=== PATIENT | male | born 1950 | race Caucasian/White ===

== ENCOUNTER 2017-12-23 09:47 | Outpatient (CLI) | payer OTHER ==
[2017-12-23] MEDS ORDERED: IOPAMIDOL-300 100 ML VIAL ONE (10:09)
[2017-12-23] MEDS ORDERED: IOPAMIDOL-300 50 ML VIAL ONE (10:09)
[2017-12-23] MEDS ORDERED: IOPAMIDOL-300 100 ML VIAL IVP ONE (13:53)
[2017-12-23] MEDS ORDERED: IOPAMIDOL-300 50 ML VIAL PO ONE (13:53)
--- NOTE | 2017-12-23 15:01 | CT Report ---
Reason: 2-3 MOINTHS NIGHT SWEATS, CONCERNED W/OCCULT MALIG Procedure Date: 12/23/2017 Accession Number: [id number] / [id number] Procedure: CT - Chest W/ CPT Code: FULL RESULT: EXAM: CT CHEST EXAM DATE: 12/23/2017 11:50 AM. CLINICAL HISTORY: 2-3 MONTHS NIGHT SWEATS, CONCERNED W/OCCULT MALIG. COMPARISONS: None. TECHNIQUE: Routine helical CT imaging was performed through the chest. IV contrast: 100 cc Isovue-300. Oral contrast: Yes. Reconstructions: Coronal and sagittal. Coronal MIP. In accordance with CT protocol optimization, one or more of the following dose reduction techniques were utilized for this exam: automated exposure control, adjustment of mA and/or KV based on patient size, or use of iterative reconstructive technique. FINDINGS: Lungs/Pleura: There is a small focus of groundglass opacity about the medial aspect of the right lower lobe. Subtle similar finding of the medial aspect of the left lower lobe. No nodules or masses. No pneumothorax or pleural effusion. Mediastinum: Paratracheal lymph node measures 7 mm in short axis. Right hilar lymph node measures 1.1 cm in short axis. Subcarinal lymph node measures 9 mm in short axis. There are atherosclerotic calcifications of the coronary arteries. Bones: No bone lesions. Visualized Abdomen: Unremarkable. IMPRESSION: There are subtle groundglass opacities of the lower lobes. The findings are nonspecific and could be infectious or inflammatory. Other etiologies are not excluded completely. Follow up is recommended. Mediastinal and hilar lymph nodes are nonspecific but may be reactive. [facility]
--- NOTE | 2017-12-23 15:20 | CT Report ---
Reason: 2-3 MOINTHS NIGHT SWEATS, CONCERNED W/OCCULT MALIG Procedure Date: 12/23/2017 Accession Number: [id number] / [id number] Procedure: CT - Abdomen/Pelvis W/ CPT Code: FULL RESULT: EXAM: CT ABDOMEN AND PELVIS EXAM DATE: 12/23/2017 11:50 AM. CLINICAL HISTORY: 2-3 MONTHS NIGHT SWEATS, CONCERNED W/OCCULT MALIG. COMPARISONS: None. TECHNIQUE: Routine helical CT imaging was performed through the abdomen and pelvis. IV contrast: ISOVUE 300 100mL. Enteric contrast: Yes. Reconstructions: Coronal and sagittal. In accordance with CT protocol optimization, one or more of the following dose reduction techniques were utilized for this exam: automated exposure control, adjustment of mA and/or KV based on patient size, or use of iterative reconstructive technique. FINDINGS: Lung Bases: Minimal groundglass opacities of the lower lungs are seen to advantage on concurrent chest CT. Liver: Normal. No masses. Gallbladder/Bile Ducts: Unremarkable. Spleen: Normal. Pancreas: Normal. Adrenal Glands: Normal. Kidneys: A 7 mm simple appearing right renal cyst is noted.. Peritoneal Cavity/Bowel: No free fluid, free air or adenopathy. No masses or acute inflammatory process. Pelvic Organs: The bladder and visualized pelvic organs are within normal limits. Vasculature: No aneurysms or other significant abnormality. Bones: No bone lesions. IMPRESSION: There are no suspicious abdominal or pelvic findings. Minimal groundglass opacity of the lower lungs is imaged to advantage on concurrent chest CT. Please refer to the report for discussion. [facility]
== END 2017-12-23 09:48 | disposition home or self-care (01) ==
LOC: DI 09:47
PROVIDERS: ATTEND Emergency Medicine Emergency Medical Services
DX: R61 Generalized hyperhidrosis (principal); R53.81 Other malaise; R91.8 Other nonspecific abnormal finding of lung field
CPT/HCPCS: 71260; 74177; Q9967

== ENCOUNTER 2022-12-11 12:42 | Outpatient (CLI) | payer MEDICARE | END 2022-12-11 12:43 | disposition home or self-care (01) | LOC: LAB 12:42 | PROVIDERS: ATTEND Physician Assistant | DX: R97.20 Elevated prostate specific antigen [PSA] (principal) | CPT/HCPCS: 36415; 84153; 84154 ==